=== PATIENT | female | born 1985 | race Caucasian/White ===

== ENCOUNTER 2016-12-11 12:30 | Outpatient (CLI) | payer MEDICAID ==
[~2016-12-11] VITALS: Ht 162.6 cm; Wt 80.3 kg
[~2016-12-11 12:30] MED LIST: PREN1TAB62 PO
[2016-12-11 12:39] VITALS: Ht 162.6 cm; Wt 80.3 kg
[2016-12-11] MEDS ORDERED: FERR325C PO (12:39)
[2016-12-11 12:40] VITALS: BP 110/70; PULSE 94; RESP 18
--- NOTE | 2016-12-11 13:21 | RADRPT ---
PROCEDURE: OB ultrasound for biophysical profile CLINICAL INDICATION: Decreased movement TECHNIQUE: Multiple sonographic images of the pelvis were obtained. Transabdominal view of the gr avid uterus are available for review. The images were reviewed on a PACS workstation. COMPARISON: OB ultrasound 10/10/2016 FINDINGS: breathing movement = 2/2 tone = 2/2 motion = 2/2 OSKAR = 2/2 OSKAR = 10.4 cm Single live intrauterine with cardiac activity. heart rate equals 165 beats p er minute. Presentation is cephalic. The placenta is posterior. IMPRESSION: 1. Single viable intrauterine gestation. 2. Biophysical profile = 8/8. 3. OSKAR = 10.4 cm. RPTAT: KK .Neptali Berry MD, MD Date Time Electronically viewed and signed by .Neptali Berry MD, MD on 12/11/2016 13:21 .B/
--- NOTE | 2016-12-11 13:27 | RADRPT ---
PROCEDURE: US OB - Limited weight. CLINICAL INDICATION: Decreased movement TECHNIQUE: Multiple sonographic images of the pelvis were obtained. Transabdominal imaging only w as performed. The images were reviewed on a PACS workstation. COMPARISON: OB ultrasound 10/10/2016 FINDINGS: There is a single viable intrauterine gestation. Cardiac activity is present with 154 beats per min juanjo. There is a cephalic presentation. Measurements were made in order to determine age. The results are as follows: BPD = 8.48 cm HC = 29.04 cm AC = 28.73 cm FL = 6.45 .cm Estimated gestational age of approximately 33 weeks 0 days +/ - 2 weeks 2 days by ultrasound evalua tion. The estimated date of delivery is 01/20/2017 by ultrasound evaluation. The EFW = 2085 g +/- 313 g (12.7%). The placenta is posterior. IMPRESSION: 1. Single viable intrauterine gestation of approximately 33 weeks 0 days by ultrasound evaluation. 2. The estimated weight is 2085 g (12.7%) . RPTAT: KK .Neptali Berry MD, MD Date Time Electronically viewed and signed by .Neptali Berry MD, MD on 12/11/2016 13:27 .B/
== END 2016-12-11 14:11 | disposition home or self-care (01) ==
LOC: OBT 12:30 → L-D 12:32 → OBT 14:11
PROVIDERS: ATTEND Obstetrics & Gynecology
DX: O36.8130 Decreased fetal movements, third trimester, not applicable or unspecified (principal); Z3A.00 Weeks of gestation of pregnancy not specified
CPT/HCPCS: 76815; 76818; Z7500; G0463

== ENCOUNTER 2016-12-14 17:06 | Outpatient (CLI) | payer MEDICAID ==
[~2016-12-14] VITALS: Ht 162.6 cm; Wt 80.4 kg
[~2016-12-14 17:06] MED LIST changes: +FERR325C PO
--- NOTE | 2016-12-14 18:25 | RADRPT ---
PROCEDURE: US OB biophysical profile. CLINICAL INDICATION: evaluation TECHNIQUE: Multiple sonographic images of the pelvis were obtained. The images were reviewed on a PACS workstation. COMPARISON: Obstetrical ultrasound from 12/11/2016 FINDINGS: There is a single viable intrauterine gestation. Cardiac activity is present with 152 beats per min juanjo. There is a vertex presentation. The placenta is posterior and fundal. There is no evidence of placental abruption. There is a normal amount of amniotic fluid with an OSKAR = 13.5 cm. Biophysical profile: movement 2/2 tone 2/2. breathing 2/2 OSKAR 2/2 Total 06/22 RPTAT: AA . IMPRESSION: Normal biophysical profile. Normal OSKAR of 13.5 cm, compared with an OSKAR of 10.4 cm on 12/11/2016. Physician Lucille Date Time Electronically viewed and signed by Physician Lucille on 12/14/2016 18:24 /
[2016-12-14 18:27] VITALS: Ht 162.6 cm; Wt 80.4 kg
[2016-12-14 18:29] VITALS: BP 114/56; PULSE 96; RESP 18
[2016-12-14 19:21] LABS: ADD UMIC YES; URINE BILIRUBIN (Dip) NEGATIVE (NEGATIVE); URINE BLOOD (Dip) NEGATIVE (NEGATIVE); URINE KETONES (Dip) TRACE (NEGATIVE); URINE LEUKOCYTE ESTERASE (Dip) TRACE (NEGATIVE); URINE NITRITE (Dip) NEGATIVE (NEGATIVE); URINE TOTAL PROTEIN (Dip) TRACE (NEGATIVE); URINE UROBILINOGEN (Dip) 0.2 E.U./dL (0.1-1.0)
[2016-12-14 20:17] LABS: URINE COLOR YELLOW (YELLOW)
[2016-12-14 20:18] LABS: BACTERIA,URINE FEW; MUCUS,URINE FEW; SQUAMOUS EPITHELIAL CELL,UR MODERATE; URINE RBCS 0-2 /HPF (0)
--- NOTE | 2016-12-15 05:40 | TRIAGE ---
OB Triage Datetime Report Generated by CPN: 12/15/2016 05:40 Datetime: 12/14/2016 20:39 Stage of : OB Triage Labor Evaluation Frequency: Occasional Monitor Mode: External Duration (sec)2399: 40-50 Quality: Mild Pattern: Normal: <= 5 Contractions in 10 Minutes Resting Tone [place]: Relaxed Heart Rate FHR Baseline Rate: 145 Monitor Mode: External US Variability: Moderate 6-25 bpm Accelerations: 15X15 Decelerations: Variable Category: Category II Datetime: 12/14/2016 20:34 Stage of : OB Triage Vaginal Exam Dilatation (cms): 0.0 Exam By: Dr.Delshad Datetime: 12/14/2016 20:00 Stage of : OB Triage Labor Evaluation Frequency: Occasional Monitor Mode: External Duration (sec)2399: 40-60 Quality: Mild Pattern: Normal: <= 5 Contractions in 10 Minutes Resting Tone [place]: Relaxed Heart Rate FHR Baseline Rate: 150 Monitor Mode: External US Variability: Moderate 6-25 bpm Accelerations: 15X15 Decelerations: None Category: Category I Datetime: 12/14/2016 19:36 Stage of : OB Triage Assessment Type: Triage Maternal Assessment Level of Consciousness: Fully Conscious DTR's/Clonus: DTRs 2+; No Clonus Headache: Denies Blurred Vision: No Respiratory Effort: Unlabored; Regular Rhythm; Equal Expansion Breath Sounds, Left: Clear and Equal Breath Sounds, Right: Clear and Equal Nausea/Vomiting: Denies RUQ Epigastric Pain: Denies Lower Extremities Edema: None Degree: None Upper Extremities Edema: None Degree: None Facial Edema: None Temperature Route: Oral Fall Risk Assessment History of Falling: (0) No Secondary Diagnosis: (0) No Ambulatory Aid: (0) Bedrest/Nurse Assist IV Therapy: (0) No Gait: (0) Normal/Bedrest/Immobile Mental Status: (0) Oriented to Own Ability Fall Score: 0 Fall Risk Score Definition: No Risk: No action required Pain Assessment Pain Scale: 0 Pain Presence: None/Denies Pain Type: N/A Pain Assessment Comments: Pt denies any pain or cramping. Aware awaiting UA results. Denies any ne eds at this time. Datetime: 12/14/2016 18:32 Assessment Type: Admission Assessment Maternal Assessment Level of Consciousness: Fully Conscious DTR's/Clonus: DTRs 2+; No Clonus Headache: Denies Blurred Vision: No Respiratory Effort: Unlabored; Regular Rhythm; Equal Expansion Breath Sounds, Left: Clear and Equal Breath Sounds, Right: Clear and Equal Nausea/Vomiting: Denies RUQ Epigastric Pain: Denies Lower Extremities Edema: None Degree: None Upper Extremities Edema: None Degree: None Facial Edema: None Fall Risk Assessment History of Falling: (0) No Secondary Diagnosis: (0) No Ambulatory Aid: (0) Bedrest/Nurse Assist IV Therapy: (0) No Gait: (0) Normal/Bedrest/Immobile Mental Status: (0) Oriented to Own Ability Fall Score: 0 Fall Risk Score Definition: No Risk: No action required Datetime: 12/14/2016 18:31 Time of Arrival: 12/14/2016 17:03 EGA: 34.5 Arrived By: Ambulatory Arrived From: Home Chief Complaint: FOLLOW UP NST AND BPP Movement: Present Contractions: Denies/Absent Rupture of Membranes: Denies Vaginal Bleeding: None Vaginal Discharge: Denies Recent Sexual Intercouse: Denies Abdominal Trauma: Not Applicable Patient Complaints: Other Time Provider Notified: 12/14/2016 18:39 Provider Notified: Initial Plan: NST AND BPP Datetime: 12/11/2016 13:47 Labor Evaluation Frequency: OCCAS Monitor Mode: External Duration (sec)2399: 60-100 Quality: Mild Pattern: Normal: <= 5 Contractions in 10 Minutes Resting Tone [place]: Relaxed Heart Rate FHR Baseline Rate: 145 Monitor Mode: External US FHR Baseline Changes: No Baseline Change Variability: Moderate 6-25 bpm Accelerations: 15X15 Decelerations: None Category: Category I Datetime: 12/11/2016 12:51 Labor Evaluation Frequency: OCCAS Monitor Mode: External Duration (sec)2399: 40-70 Quality: Mild Pattern: Normal: <= 5 Contractions in 10 Minutes Resting Tone [place]: Relaxed Heart Rate FHR Baseline Rate: 150 Monitor Mode: External US Variability: Moderate 6-25 bpm Accelerations: 15X15 Decelerations: None Category: Category I Datetime: 12/11/2016 12:44 Assessment Type: Admission Assessment Maternal Assessment Level of Consciousness: Fully Conscious DTR's/Clonus: DTRs 2+; No Clonus Headache: Denies Blurred Vision: No Respiratory Effort: Unlabored; Regular Rhythm; Equal Expansion Breath Sounds, Left: Clear and Equal Breath Sounds, Right: Clear and Equal Nausea/Vomiting: Denies RUQ Epigastric Pain: Denies Lower Extremities Edema: None Degree: None Upper Extremities Edema: None Degree: None Facial Edema: None Fall Risk Assessment History of Falling: (0) No Secondary Diagnosis: (0) No Ambulatory Aid: (0) Bedrest/Nurse Assist IV Therapy: (0) No Gait: (0) Normal/Bedrest/Immobile Mental Status: (0) Oriented to Own Ability Fall Score: 0 Fall Risk Score Definition: No Risk: No action required Datetime: 12/11/2016 12:43 Time of Arrival: 12/11/2016 12:25 EGA: 34.2 Arrived By: Ambulatory Arrived From: Dr. Pond Chief Complaint: DFM Movement: Decreased Contractions: Denies/Absent Rupture of Membranes: Denies Vaginal Bleeding: None Vaginal Discharge: Denies Recent Sexual Intercouse: Denies Abdominal Trauma: Not Applicable Patient Complaints: Other Time Provider Notified: 12/11/2016 13:48 Provider Notified: DR LEON Initial Plan: NST, EFW AND BPP Datetime: 10/10/2016 19:03 Fall Score: 0 Fall Risk Score Definition: No Risk: No action required Datetime: 10/10/2016 18:14 Fall Score: 0 Fall Risk Score Definition: No Risk: No action required Datetime: 10/08/2016 14:03 EGA: 25.3 Datetime: 10/08/2016 12:11 EGA: 25.1 Fall Score: 0 Fall Risk Score Definition: No Risk: No action required
== END 2016-12-14 20:47 | disposition home or self-care (01) ==
LOC: OBT 17:06 → L-D 17:50 → OBT 20:47
PROVIDERS: ATTEND Obstetrics & Gynecology
DX: O36.8130 Decreased fetal movements, third trimester, not applicable or unspecified (principal); Z3A.34 34 weeks gestation of pregnancy
CPT/HCPCS: 76818; 81001; Z7500; 81003; G0463

== ENCOUNTER 2017-01-13 11:14 | Inpatient (IN) | payer MEDICAID ==
[~2017-01-13] VITALS: Ht 160 cm; Wt 82.8 kg
[2017-01-13 11:32] VITALS: BP 114/60; PULSE 92; RESP 18; Ht 160 cm; Wt 82.8 kg
--- NOTE | 2017-01-13 12:00 | TRIAGE ---
OB Triage Datetime Report Generated by CPN: 01/13/2017 11:59 Datetime: 01/13/2017 11:55 Membrane Status: Ruptured Datetime: 01/13/2017 11:40 Vaginal Exam Dilatation (cms): 3.0 Effacement (%): 70 Station: -2 Exam By: KHEMANI Vaginal Bleeding: None Nitrazine: Positive Cervix, Consistency: Soft Cervix, Position: Midposition Datetime: 01/13/2017 11:29 Assessment Type: Triage Maternal Assessment Level of Consciousness: Fully Conscious DTR's/Clonus: DTRs 2+; No Clonus Headache: Denies Blurred Vision: No Respiratory Effort: Unlabored; Regular Rhythm; Equal Expansion Breath Sounds, Left: Clear and Equal Breath Sounds, Right: Clear and Equal Nausea/Vomiting: Denies RUQ Epigastric Pain: Denies Lower Extremities Edema: None Degree: None Upper Extremities Edema: None Degree: None Facial Edema: None Fall Risk Assessment History of Falling: (0) No Secondary Diagnosis: (0) No Ambulatory Aid: (0) Bedrest/Nurse Assist IV Therapy: (0) No Gait: (0) Normal/Bedrest/Immobile Mental Status: (0) Oriented to Own Ability Fall Score: 0 Fall Risk Score Definition: No Risk: No action required Datetime: 01/13/2017 11:26 Time of Arrival: 01/13/2017 11:10 EGA: 39.0 Arrived By: Ambulatory Arrived From: Home Chief Complaint: C/O SROM AT 0840 Movement: Present Contractions: Irregular Rupture of Membranes: Ruptured Vaginal Bleeding: Normal Show Vaginal Discharge: Denies Recent Sexual Intercouse: Denies Abdominal Trauma: Not Applicable Patient Complaints: Contractions; Cramping; Back Pain Time Provider Notified: 01/13/2017 11:55 Provider Notified: DELSHAD Initial Plan: EFM, SVE Datetime: 12/14/2016 19:36 Fall Score: 0 Fall Risk Score Definition: No Risk: No action required Datetime: 12/14/2016 18:32 Fall Score: 0 Fall Risk Score Definition: No Risk: No action required Datetime: 12/14/2016 18:31 EGA: 34.5 Datetime: 12/11/2016 12:44 Fall Score: 0 Fall Risk Score Definition: No Risk: No action required Datetime: 12/11/2016 12:43 EGA: 34.2 Datetime: 10/10/2016 19:03 Fall Score: 0 Fall Risk Score Definition: No Risk: No action required Datetime: 10/10/2016 18:14 Fall Score: 0 Fall Risk Score Definition: No Risk: No action required Datetime: 10/08/2016 14:03 EGA: 25.3 Datetime: 10/08/2016 12:11 EGA: 25.1 Fall Score: 0 Fall Risk Score Definition: No Risk: No action required
[2017-01-13] MEDS ORDERED: LIDOCAINE 1% (MPF) 30 ML INJ INJ PRN (12:30)
[2017-01-13] MEDS ORDERED: LACTATED RINGER'S 1,000 ML IV PRN (12:30)
[2017-01-13] MEDS ORDERED: OXYTOCIN 30 UNITS/LR 500 ML IV SCH ×2 (12:30)
[2017-01-13] MEDS ORDERED: MISOPROSTOL 200 MCG TAB PR PRN ×2 (12:30→21:30)
[2017-01-13] MEDS ORDERED: OXYTOCIN 30 UNITS/LR 500 ML IV PRN ×2 (12:30→21:30)
[2017-01-13] MEDS ORDERED: METHYLERGONOVINE 0.2 MG INJ IM PRN ×2 (12:30→21:30)
[2017-01-13] MEDS ORDERED: IBUPROFEN 600 MG TAB PO PRN (12:30)
[2017-01-13] MEDS ORDERED: BUTORPHANOL 2 MG INJ IV PRN (12:30)
[2017-01-13] MEDS ORDERED: CARBOPROST 250 MCG INJ IM PRN ×2 (12:30→21:30)
[2017-01-13] MEDS: LACTATED RINGER'S 1,000 ML IV SCH ×2 (12:45→15:31)
[2017-01-13 12:47] LABS: ADD SCAN DIFF NO
[2017-01-13 12:52] LABS: BASOPHILS % 0.1 % (0.0-2.0); EOSINOPHILS % 0.2 % (0.0-7.0); HEMATOCRIT 38.3 % (37.0-47.0); HEMOGLOBIN 13.1 g/dl (12.0-16.0); LYMPHOCYTES # 1.9 10^3/ul (0.8-2.9); LYMPHOCYTES % 23.1 % (15.0-51.0); MEAN CORPUSCULAR HEMOGLOBIN 31.5 pg (29.0-33.0); MEAN CORPUSCULAR HGB CONC 34.2 g/dl (32.0-37.0); MEAN CORPUSCULAR VOLUME 92.1 fl (82.0-101.0); MEAN PLATELET VOLUME 10.4 fl (7.4-10.4); MONOCYTE # 0.5 10^3/ul (0.3-0.9); MONOCYTES % 6.5 % (0.0-11.0); NEUTROPHIL # 5.5 10^3/ul (1.6-7.5); PLATELET COUNT 223 10^3/UL (140-415); RED BLOOD COUNT 4.16 10^6/ul (4.20-5.40)
[2017-01-13 13:00] LABS: INR 0.91; PROTIME 12.3 Sec (12.2-14.2)
[2017-01-13 13:01] LABS: PARTIAL THROMBOPLASTIN TIME 25.2 Sec (25.0-35.0)
[2017-01-13] MEDS ORDERED: FENTAnyl 2MCG/ML-ROPIV 0.2% 100 ML ONE (14:42)
[2017-01-13] MEDS ORDERED: FENTAnyl 2MCG/ML-ROPIV 0.2% 100 ML BAG EPI SCH (18:00)
[2017-01-13] MEDS ORDERED: NALOXONE (0.4 MG/ML) INJ IV PRN (18:00)
--- NOTE | 2017-01-13 18:57 | HP ---
Date/Time of Note Date/Time of Note DATE: 01/13/17 TIME: 18:55 OB - History Hx of Present Chief Complaint: Rupture of membranes Estimated Due Date: Jan 20, 2017 : 3 Para: 1 Spontaneous : 1 Therapeutic : 0 Care: Good Care Ultrasounds: Normal mid trimester US Obstetrical Complications: None Medical Complications: None Past Family/Social History * Past Medical, Surgical, Family and Obstetric Histories reviewed from chart. GBS Status: Negative OB Admission Exam Vital Signs Vital Signs Vital Signs Date Time Temp Pulse Resp B/P Pulse Ox O2 Delivery O2 Flow Rate FiO2 01/13/17 11:32 98.4 92 18 114/60 96 Room Air Physical Exam HEENT: WNL Heart: Rhythm Normal Lungs: Clear Abdomen: WNL Extremities: Normal Cervical Dilatation: 3cm Effacement: 50% Station: -1 Membranes: Ruptured Amniotic Fluid: Clear Heart Rate: 140's Accelerations: Accelerations Present Decelerations: No Decelerations Varibility: Moderate Last 72 hours Lab Results CBC & BMP 01/13/17 12:30 OB Assessment/Plan Reason for admission: active labor Plan: Expectant Management PETRA LEON MD Jan 13, 2017 18:57
--- NOTE | 2017-01-13 19:39 | LDN ---
Date/Time of Note Date/Time of Note DATE: 01/13/17 TIME: 19:36 Delivery Summary Placenta Delivered: Spontaneously Meconium: none Perineum intact?: No Perineal laceration repair: Second degree perineal laceration and vaginal laceration repaired with 2-0 Vicryl and 3-0 chromic. Anesthesia type: Epidural Estimated blood loss: 300 Sponge & Needle done & correct: Yes All needle counts correct: Yes Any foreign bodies felt in the: No Problems: Delivery Information Sex Infant Sex: female Apgars 1 Minute: 8 5 Minute: 9 Suctioning Nose & mouth suctioned at sarah: Yes Delee suction performed: No Umbilical Cord Umbilical cord with: 3 Vessels Cord presentations: no nuchal cord Cord Blood was obtained: Yes Mother & Baby Disposition Disposition Mom & Baby to Maternity; Good: Yes PETRA LEON MD Jan 13, 2017 19:39
[2017-01-13 21:30] VITALS: BP 116/57; PULSE 88; RESP 20
[2017-01-13] MEDS ORDERED: ACETAMINOPHEN/CODEINE #3 TAB PO PRN (21:30)
[2017-01-13] MEDS ORDERED: DIBUCAINE 1% 30 GM OINT PR PRN (21:30)
[2017-01-13] MEDS ORDERED: ACETAMINOPHEN 325 MG TAB PO PRN (21:30)
[2017-01-14 00:45] VITALS: BP 106/60; PULSE 91; RESP 18
[2017-01-14] MEDS: BENZOCAINE 20% 56 ML SPRAY TOP PRN (00:56)
[2017-01-14] MEDS: IBUPROFEN 600 MG TAB PO SCH ×5 (00:56→23:35)
[2017-01-14] MEDS: LACTATED RINGER'S 1,000 ML IV* SCH ×3 (00:56→13:11)
[2017-01-14] MEDS: WITCH HAZEL/GLYCERIN PAD PR PRN (00:56)
[2017-01-14 04:30] VITALS: BP 109/53; PULSE 88; RESP 18
[2017-01-14 08:00] VITALS: BP 120/57; PULSE 81; RESP 18
[2017-01-14] MEDS: SENNA/DOCUSATE NA (8.6MG/50MG) TAB PO SCH ×2 (09:00→21:00)
[2017-01-14 09:15] LABS: ADD SCAN DIFF NO
[2017-01-14 09:32] LABS: BASOPHILS % 0.3 % (0.0-2.0); EOSINOPHILS # 0.1 10^3/ul (0.0-0.5); EOSINOPHILS % 0.4 % (0.0-7.0); HEMATOCRIT 35.3 % (37.0-47.0); HEMOGLOBIN 12.4 g/dl (12.0-16.0); LYMPHOCYTES # 2.4 10^3/ul (0.8-2.9); LYMPHOCYTES % 20.1 % (15.0-51.0); MEAN CORPUSCULAR HEMOGLOBIN 32.5 pg (29.0-33.0); MEAN CORPUSCULAR HGB CONC 35.1 g/dl (32.0-37.0); MEAN CORPUSCULAR VOLUME 92.7 fl (82.0-101.0); MEAN PLATELET VOLUME 10.4 fl (7.4-10.4); MONOCYTE # 1.1 10^3/ul (0.3-0.9); MONOCYTES % 8.9 % (0.0-11.0); NEUTROPHIL # 8.3 10^3/ul (1.6-7.5); NEUTROPHILS % 69.5 % (39.0-77.0); PLATELET COUNT 212 10^3/UL (140-415); RED BLOOD COUNT 3.81 10^6/ul (4.20-5.40)
[2017-01-14 16:00] VITALS: BP 115/66; PULSE 80; RESP 18
--- NOTE | 2017-01-14 18:01 | DS ---
Date/Time of Note Date/Time of Note DATE: 01/14/17 TIME: 18:00 Obstetrical Discharge Record Final Diagnosis Final Diagnosis: Term delivered Vaginal Delivery Obstetrical Delivery: Spontaneous, Laceration, Repaired Complications Augmentation: No Induction: No Condition on Discharge Physical Assessment Voiding: Yes Bowel Movement: Yes Breast: Soft, non-tender Fundus: Firm Calf Tenderness: No Patient Condition: Stable PETRA LEON MD Jan 14, 2017 18:01
[2017-01-14] MEDS: LANOLIN 7 GM TUBE TOP PRN (18:10)
[2017-01-14 20:15] VITALS: BP 111/68; PULSE 94; RESP 20
[2017-01-15 04:15] VITALS: BP 91/52; PULSE 92; RESP 18
[2017-01-15] MEDS: IBUPROFEN 600 MG TAB PO SCH ×3 (06:18→14:50)
[2017-01-15 08:00] VITALS: BP 133/83; PULSE 67; RESP 18
[2017-01-15] MEDS ORDERED: DIPHTH/TET/ACEL PERTUSS (ADULT) 0.5 ML VIAL IM* ONE (09:00)
[2017-01-15] MEDS: LANOLIN 7 GM TUBE TOP PRN ×2 (09:23→14:49)
[2017-01-15] MEDS: SENNA/DOCUSATE NA (8.6MG/50MG) TAB PO SCH (09:23)
[2017-01-15] MEDS: BENZOCAINE 20% 56 ML SPRAY TOP PRN (14:49)
[2017-01-15] MEDS: WITCH HAZEL/GLYCERIN PAD PR PRN (14:49)
[2017-01-16] MEDS ORDERED: INFLUENZA VIRUS VACCINE 0.5 ML (DISPENSING) IM* ONE (09:00)
== END 2017-01-15 15:30 | disposition home or self-care (01) | DRG 775 ==
LOC: OBT 11:14 → L-D 11:15 → OBT 12:02 → L-D 12:04 → PP1 21:24
PROVIDERS: ADMIT Obstetrics & Gynecology; ATTEND Obstetrics & Gynecology
PROC: 10E0XZZ Delivery of Products of Conception, External Approach (ICD-10-PCS; principal; 2017-01-13)
PROC: 0KQM0ZZ Repair Perineum Muscle, Open Approach (ICD-10-PCS; 2017-01-13)
DX: O70.1 Second degree perineal laceration during delivery (principal); Z37.0 Single live birth; Z3A.00 Weeks of gestation of pregnancy not specified
CPT/HCPCS: 36415; 62319; 85025; 85610; 85730; 86592; 86900; 86901; 90715; G0463; J2590; J3010; J7120